=== PATIENT | male | born 1990 | race Caucasian/White ===

== ENCOUNTER → 2016-12-18 | Outpatient (CLI) | payer OTHER ==
--- NOTE | 2016-12-19 09:06 | KCIC ---
Examination: MRI of the left knee without contrast. HISTORY History of left knee pain, history of meniscal repair, history of fracture patella. COMPARISON None available. TECHNIQUE Multiplanar, multisequence MR imaging of the left knee was performed without contrast. Findings : The anterior cruciate ligament, posterior cruciate ligament appear intact. Prior changes of ACL repair identified. There is some mild increased signal identified about the anterior cruciate ligament probably scarring changes. The medial meniscus is intact. There is mild increased signal identified in the posterior horn of the lateral meniscus best visualized series 6 image #6 likely a degeneration.There is mild blunting of the body of the lateral meniscus likely a small radial tear, best visualized on series 4 image #4. The medial collateral ligament is intact and the lateral collateral ligamentous complex including the fibular collateral ligament, biceps femoris tendon, popliteus tendon appear intact. The distal attachment of the quadriceps tendon is intact. The attachment of the infrapatellar tendon is intact. Hardware identified in the patella. The medial retinaculum, lateral retinaculum appear intact. Minimal knee joint effusion is identified. No evidence of popliteal cyst. There is mild scarring changes identified in the region of the infrapatellar Hoffa's fat pad likely prior surgical changes. There is mild superficial fraying of cartilage identified in the medial, lateral, patellofemoral compartments. IMPRESSION 1. Mild blunting of the body of the lateral meniscus, questionable of small radial tear. There is mild increased signal identified in the posterior horn of the lateral meniscus likely degeneration. Probable scarring changes identified around the anterior cruciate ligament and in the infra patellar Hoffa's fat pad. 2. Hardware identified in the patella likely prior surgical changes. 3. Grade 1 chondromalacia medial, lateral and patellofemoral compartment 4. Small knee joint effusion. Electronically signed by: Magno Duke (Dec 19, 2016 09:04:59)
== END | disposition home or self-care (01) ==
LOC: KCIC MRI 14:59
PROVIDERS: ATTEND Physician Assistant Surgical
DX: M25.562 Pain in left knee (principal); G89.29 Other chronic pain; M94.262 Chondromalacia, left knee; M25.462 Effusion, left knee
CPT/HCPCS: 73721

== ENCOUNTER 2018-03-13 14:35 | Emergency (ER) | payer SELFPAY, OTHER | END 2018-03-13 16:44 | disposition home or self-care (01) | LOC: ER 14:35 | DX: S99.911A Unspecified injury of right ankle, initial encounter (principal); S99.921A Unspecified injury of right foot, initial encounter; W11.XXXA Fall on and from ladder, initial encounter; Y93.89 Activity, other specified; Y92.89 Other specified places as the place of occurrence of the external cause; Y99.8 Other external cause status | CPT/HCPCS: 73610; 73630; 99284 ==

== ENCOUNTER → 2021-05-25 | Outpatient (CLI) | payer OTHER ==
[2018-03-13 14:54] VITALS: BP 132/69
[~2021-05-25] MED LIST: DEXT15TA PO; HYDR-2759 PO; HYDR-2761 PO
== END ==
LOC: LAB 09:52
PROVIDERS: ATTEND Surgery
DX: Z01.812 Encounter for preprocedural laboratory examination (principal); Z20.822 Contact with and (suspected) exposure to COVID-19; K42.9 Umbilical hernia without obstruction or gangrene
CPT/HCPCS: U0003; U0005

== ENCOUNTER → 2021-07-03 | Outpatient (CLI) | payer OTHER ==
[2018-03-13 14:54] VITALS: BP 132/69
== END ==
LOC: LAB 14:09
PROVIDERS: ATTEND Surgery
DX: Z01.812 Encounter for preprocedural laboratory examination (principal); Z20.822 Contact with and (suspected) exposure to COVID-19; K42.9 Umbilical hernia without obstruction or gangrene
CPT/HCPCS: U0003; U0005

== ENCOUNTER 2021-07-05 06:08 | Day surgery (SDC) | payer OTHER ==
[~2021-07-05] VITALS: Ht 167.6 cm; Wt 67.0 kg
[~2021-07-05 06:08] MED LIST changes: -HYDR-2759 PO; +ceFAZolin SODIUM IV Push 1 GM VIAL. IVP PRN
[2021-07-05] MEDS ORDERED: ACETAMINOPHEN 500 MG TABLET PO PRN (06:15)
[2021-07-05 06:31] VITALS: BP 119/66
[2021-07-05] MEDS ORDERED: PROCHLORPERAZINE 10 MG/2 ML VIAL. IVP PRN (06:45)
[2021-07-05] MEDS ORDERED: IV RINGERS,LACTATED 1000ML 1,000 ML IV SCH ×2 (06:45)
[2021-07-05] MEDS ORDERED: MORPHINE SULFATE 2 MG/ML INJ. IVP PRN (06:45)
[2021-07-05] MEDS ORDERED: fentaNYL PF VIAL 100 MCG/2 ML VIAL IVP PRN ×2 (06:45)
[2021-07-05] MEDS ORDERED: HYDROmorphone 2 MG/ML VIAL IVP PRN (06:45)
[2021-07-05] MEDS ORDERED: DEXAMETHASONE SOD PHOS 4 MG/ML VIAL ONE (07:15)
[2021-07-05] MEDS ORDERED: LIDOCAINE 1% PF 5 ML VIAL. ONE (07:15)
[2021-07-05] MEDS ORDERED: PROPOFOL 10 MG/ML (20ML) VIAL. IV ONE (07:15)
[2021-07-05] MEDS ORDERED: ONDANSETRON PF 4 MG/2 ML VIAL. ONE (07:16)
[2021-07-05] MEDS ORDERED: KETOROLAC 30 MG/ML VIAL. ONE (07:16)
[2021-07-05] MEDS ORDERED: fentaNYL PF VIAL 100 MCG/2 ML VIAL ONE ×2 (07:17→08:11)
[2021-07-05] MEDS ORDERED: BUPIVACAINE-EPI 0.5% 30 ML VIAL KIT. ONE (07:19)
[2021-07-05] MEDS ORDERED: ROCURONIUM 50 MG/5 ML VIAL. ONE (07:36)
--- NOTE | 2021-07-05 07:45 | PDOC1 ---
History and Physical Date of Admission Date of Admission DATE: 07/05/21 TIME: 07:42 Identification/Chief Complaint Chief Complaint Abdominal pain Source Source: Patient History of Present Illness History of Present Illness 31-year-old male with complaints of a painful bulge at his umbilicus been present for several years but getting worse over the last couple months Past Medical History Cardiovascular: No pertinent hx Pulmonary: No pertinent hx GI: No pertinent hx Heme/Onc: No pertinent hx Hepatobiliary: No pertinent hx Psych: Other (Attention deficit disorder) Rheumatologic: No pertinent hx Infectious disease: No pertinent hx ENT: No pertinent hx Renal/: No pertinent hx Endocrine: No pertinent hx Dermatology: Psoriasis Past Surgical History Past Surgical History: No pertinent history (Knee surgery) Family History Family History: No Significant Social History Smoke: No ALCOHOL: none Drugs: None Current Medications Current Medications Current Medications Cefazolin Sodium (Ancef) 1 gm 1X PRN PRN IVP PRIOR TO PROCEDURE; Start 07/05/21 at 06:00; Stop 07/05/21 at 21:00 Acetaminophen (Tylenol) 1,000 mg 1X PREOP PRN PO PRIOR TO PROCEDURE Last administered on 07/05/21at 06:44; Start 07/05/21 at 06:15 Fentanyl Citrate (Fentanyl 2ml Vial) 25 mcg PRN Q5MIN PRN IVP MILD PAIN 1-3; Start 07/05/21 at 06:45; Stop 07/06/21 at 06:44 Fentanyl Citrate (Fentanyl 2ml Vial) 50 mcg PRN Q5MIN PRN IVP MODERATE PAIN 4- 6; Start 07/05/21 at 06:45; Stop 07/06/21 at 06:44 Morphine Sulfate (Morphine Sulfate) 1 mg PRN Q10MIN PRN IVP SEVERE PAIN 7-10; Start 07/05/21 at 06:45; Stop 07/06/21 at 06:44 Ringer's Solution 1,000 ml @ 30 mls/hr Q24H IV Last administered on 07/05/21at 06:44; Start 07/05/21 at 06:45; Stop 07/05/21 at 18:44 Hydromorphone HCl (Dilaudid) 0.5 mg PRN Q10MIN PRN IVP SEVERE PAIN 7-10, 2nd CHOICE; Start 07/05/21 at 06:45; Stop 07/06/21 at 06:44 Prochlorperazine Edisylate (Compazine) 5 mg PACU PRN PRN IVP NAUSEA, MRX1; Start 07/05/21 at 06:45; Stop 07/06/21 at 06:44 Ringer's Solution 1,000 ml @ 75 mls/hr [id number] IV ; Start 07/05/21 at 06:45 Propofol (Diprivan) 200 mg STK-MED ONCE IV ; Start 07/05/21 at 07:15; Stop 07/05/21 at 07:15; Status DC Lidocaine HCl (Xylocaine-Mpf 1% 5ml Vial) 5 ml STK-MED ONCE .ROUTE ; Start 07/05/21 at 07:15; Stop 07/05/21 at 07:15; Status DC Dexamethasone Sodium Phosphate (Decadron) 4 mg STK-MED ONCE .ROUTE ; Start 07/05/21 at 07:15; Stop 07/05/21 at 07:16; Status DC Ondansetron HCl (Zofran) 4 mg STK-MED ONCE .ROUTE ; Start 07/05/21 at 07:16; Stop 07/05/21 at 07:16; Status DC Ketorolac Tromethamine (Toradol 30mg Vial) 30 mg STK-MED ONCE .ROUTE ; Start 07/05/21 at 07:16; Stop 07/05/21 at 07:16; Status DC Fentanyl Citrate (Fentanyl 2ml Vial) 100 mcg STK-MED ONCE .ROUTE ; Start 07/05/21 at 07:17; Stop 07/05/21 at 07:17; Status DC Bupivacaine HCl/ Epinephrine Bitart (Sensorcain-Epi 0.5% Kit) 30 ml STK-MED ONCE .ROUTE ; Start 07/05/21 at 07:19; Stop 07/05/21 at 07:20; Status DC Rocuronium [place] (Zemuron) 50 mg STK-MED ONCE .ROUTE ; Start 07/05/21 at 07:36; Stop 07/05/21 at 07:36; Status DC Active Scripts Active Reported Adderall 15 Mg Tablet (Dextroamphetamine/Amphetamine) 15 Mg Tablet 1 Tab PO BID MDD 2 Tablet(s) 5 Days Allergies Allergies: Coded Allergies: No Known Drug Allergies (Unverified , 05/25/21) ROS Gastrointestinal: Yes Abdominal Pain Physical Exam General: Alert, Oriented X3, Cooperative, No acute distress HEENT: Atraumatic, EOMI Lungs: Clear to auscultation, Normal air movement Heart: RRR, no murmurs Abdomen: Normal bowel sounds, Soft, Other (Painful umbilical hernia small) Rectal Exam: not examined Extremities: No edema Skin: No significant lesion Neuro: Normal speech Psych/Mental Status: Mental status NL Vitals Vitals Vital Signs Date Time Temp Pulse Resp B/P (MAP) Pulse Ox O2 Delivery O2 Flow Rate FiO2 07/05/21 06:34 97.1 65 18 119/66 100 Room Air 97.1 VTE Prophylaxis Ordered VTE Prophylaxis Devices: Yes VTE Pharmacological Prophylaxi: Contraindicated Assessment/Plan Assessment/Plan Umbilical hernia plan open repair Justifications for Admission Other Justification MARGARET LUNA MD Jul 05, 2021 07:45
[2021-07-05] MEDS ORDERED: NEOSTIGMINE METHYLSULFATE 5 MG/5 ML SYRINGE. ONE (08:05)
[2021-07-05] MEDS ORDERED: GLYCOPYRROLATE 1 MG/5 ML VIAL. ONE (08:05)
--- NOTE | 2021-07-05 08:07 | PDOC4 ---
Operative Note Operative Note Date: July 05, 2021 at 806 Preoperative diagnosis: Umbilical hernia Postoperative diagnosis: Same Procedure: Umbilical hernia repair open Surgeon: Uche Specimen: None Dictation: Patient is 31-year-old male with complaints of a painful bulge at his umbilicus consistent with an umbilical hernia. Procedure of umbilical hernia repair was explained to the patient detail risk-benefit were also discussed including bleeding infection alternatives to the procedure also discussed with patient who seemed to understand and gave a verbal written consent to have the procedure performed. Patient was taken to the operating room placed in the supine position general anesthesia was initiated once patient was sleeping intubated his abdomen was prepped and draped usual sterile fashion using ChloraPrep. An area just above the umbilicus was injected with quarter percent Marcaine with epinephrine incision was made with a 15 blade scalpel is carried down through subcutaneous tissue using electrocautery provide hemostasis down to the fascial defect. Fascial defect was then closed with a single interrupted 0 Vicryl suture. The umbilicus was tacked to the fascia with a 3-0 Vicryl single interrupted suture the deep subcutaneous layer was closed with a 3-0 Vicryl and the skin was reapproximated for subcuticular Monocryl Mastisol Steri-Strips and island dressing were applied patient was awakened extubated in the operating room taken recovery in stable condition all sponge instrument needle counts listed as correct estimated blood loss 5 mL. MARGARET LUNA MD Jul 05, 2021 08:07
[2021-07-05] MEDS ORDERED: HYDR-2759 PO (08:10)
--- NOTE | 2021-07-05 08:11 | DISCH ---
DISCHARGE INSTRUCTIONS Condition on Discharge Condition on Discharge: Stable Activity After Discharge Activity Instructions for Disc: Activity as tolerated Other activity instructions: No lifting more than 20 pounds for 2-week Diet after Discharge Diet after Discharge: Regular Wound Incision Care Other wound/incision instructi: May shower in 24 hours Contacting the DRDenia after DC Call your doctor for: If your condition worsens Follow-Up Follow up with: Dr. Luna in 2 weeks MARGARET LUNA MD Jul 05, 2021 08:11
[2021-07-05] MEDS ORDERED: SEVOFLURANE 16 TO 30 MINUTES. IH ONE (08:17)
[2021-07-05] MEDS ORDERED: HYDROcodone/APAP 5/325MG 1 TAB TABLET ONE (08:48)
[2021-07-05 09:00] VITALS: BP 145/85
[2021-07-05] MEDS ORDERED: HYDROcodone/APAP 5/325MG 1 TAB TABLET PO ONE (09:00)
== END 2021-07-05 09:23 | disposition home or self-care (01) ==
LOC: SURG 06:08
PROVIDERS: ATTEND Surgery
DX: K42.9 Umbilical hernia without obstruction or gangrene (principal); M19.90 Unspecified osteoarthritis, unspecified site; Z79.899 Other long term (current) drug therapy; Z98.890 Other specified postprocedural states
CPT/HCPCS: 49585; A4215; A4930; A6258; J0690; J1100; J1885; J2405; J2704; J2710; J3010; J3490